=== PATIENT | female | born 1960 | race Caucasian/White ===

== ENCOUNTER → 2018-12-03 | Day surgery (SDC) | payer MEDICAID ==
[~2018-12-03] MED LIST: IV RINGERS,LACTATED 1000ML 1,000 ML IV SCH; LIDOCAINE 2% PF 5 ML VIAL. ONE; OMEP20CA10 PO; PROPOFOL 20 ML IV ONE; VENL150C6 PO; VENL37.5 PO
[2018-12-03 17:10] VITALS: BP 138/74
== END ==
LOC: ENDOS 15:18
PROVIDERS: ATTEND Internal Medicine Gastroenterology
DX: K29.50 Unspecified chronic gastritis without bleeding (principal); K21.9 Gastro-esophageal reflux disease without esophagitis; K74.60 Unspecified cirrhosis of liver; F15.90 Other stimulant use, unspecified, uncomplicated; Z88.6 Allergy status to analgesic agent; Z86.19 Personal history of other infectious and parasitic diseases; Z98.51 Tubal ligation status; Z98.890 Other specified postprocedural states
CPT/HCPCS: 43235; J2001; J2704